=== PATIENT | female | born 1995 | race Caucasian/White ===

== ENCOUNTER 2018-07-04 21:23 | Emergency (ER) | payer OTHER ==
--- NOTE | 2018-07-04 21:51 | ED.PDOC ---
History of Present Illness - General Chief Complaint: PORTFOLIO ACCOUNTANT Problem Stated Complaint: elevated BP, 35 wks Pg Time Seen by Provider: 07/04/18 21:48 Source: patient, RN notes reviewed Additional Information: 23 YEAR OLD WHITE FEMALE WHO IS 34 WEEKS HERE BECAUSE OF CONCERN HER BLOOD PRESSURE WAS 134/86 TODAY EVENING SHE TTOK IT AT [employer] SHE ALSO REPORTS HER FEET HAS BEEN SWOLLEN LAST 3 DAYS AND SHE EXPERIENCED NOSE BLEED ON THE LEFT SIDE TONIGHT HER APPETITE IS GOOD REPORTS NO NAUSEA NO ABDOMINAL PAIN NO HEAD ACHE NO VISUAL BLURRING NO SEIZURES SHE HAS BEEN FEELING MOVEMENTS AND NO VAGINAL DISCHARGE OR BLEEDING PE AWAKE ALERT BP AND TILT NORMAL LEFT ANTERIOR NOSTRIL BLEED NOW NO ACTIVE BLEEDING NOTED OROPHARYNX NORMAL DTR 2 + REFLEXES NO ABDOMINAL TENDERNESS NO TENDERNESS OVER THE RUQ - History of Present Illness Timing/Duration: 4-6 hours Severity: mild Improving Factors: nothing Worsening Factors: nothing Associated Symptoms: denies symptoms Allergies/Adverse Reactions: Allergies NO KNOWN ALLERGY Allergy (Verified 07/04/18 21:59) Review of Systems - Review of Systems Constitutional: States: no symptoms reported EENTM: States: no symptoms reported Respiratory: States: no symptoms reported Cardiology: States: no symptoms reported Gastrointestinal/Abdominal: States: no symptoms reported Genitourinary: States: no symptoms reported Musculoskeletal: States: no symptoms reported Skin: States: no symptoms reported Neurological: States: no symptoms reported Family Medical History - Family History Mother Living Status: Still Living Hx Family Hypertension: Yes Physical Exam - Physical Exam General Appearance: Alert, Comfortable Eye Exam: bilateral normal Ears, Nose, Throat: hearing grossly normal Neck: non-tender Respiratory: chest non-tender, lungs clear, normal breath sounds, no respiratory distress, no accessory muscle use Cardiovascular/Chest: normal peripheral pulses, regular rate, rhythm, other - 1 + edema on both feet Gastrointestinal/Abdominal: normal bowel sounds, non tender, soft, no organomegaly, no pulsatile mass Back Exam: normal inspection, no CVA tenderness Neurologic: 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, no motor/sensory deficits, alert, normal mood/affect, oriented x 3 DTR: 2+: Biceps, left, Biceps, right, Brachioradialis, left, Brachioradialis, right, Patellar, left, Patellar, right Skin Exam: normal color, warm/dry Progress - Results/Orders Results/Orders: Laboratory Tests 07/04/18 22:00 Urine Color Yellow Urine Appearance Sl cloudy Urine pH 6.0 Ur Specific [place] 1.015 Urine Protein Negative Urine Glucose (UA) Negative Urine Ketones Negative Urine Blood Negative Urine Nitrite Negative Urine Bilirubin Negative Urine Urobilinogen 0.2 Ur Leukocyte Esterase Moderate H Urine RBC 1-3 Urine WBC 5-10 H Ur Epithelial Cells 10-20 Urine Bacteria 1+ Departure - Departure Clinical Impression: Mild epistaxis, Third trimester Time of Disposition: 22:20 Disposition: Discharge to Home or Self Care Condition: Good Departure Forms: ED Discharge - Pt. Copy, Patient Portal Self Enrollment Diet: low salt diet
[2018-07-04 21:55] VITALS: TEMP 98.2; O2SAT 98
[2018-07-04 22:31] VITALS: BP 122/75
== END 2018-07-04 22:31 | disposition home or self-care (01) ==
LOC: ER 21:23
DX: O99.89 Other specified diseases and conditions complicating pregnancy, childbirth and the puerperium (principal); R04.0 Epistaxis; M79.89 Other specified soft tissue disorders; Z3A.34 34 weeks gestation of pregnancy